=== PATIENT | female | born 1985 | race Caucasian/White ===

== ENCOUNTER 2021-05-09 20:26 | Emergency (ER) | payer OTHER ==
[~2021-05-09] VITALS: Ht 162.6 cm; Wt 85.7 kg
[2021-05-09 21:25] VITALS: BP 139/99
--- NOTE | 2021-05-09 21:28 | NUR ---
TO LOBBY A/W BED AMBULATORY
--- NOTE | 2021-05-09 22:46 | NUR ---
Dr. Hopkins examining patient.
[2021-05-09] MEDS ORDERED: IBUPROFEN 600 MG TAB PO ONE (22:50)
--- NOTE | 2021-05-09 23:31 | NUR ---
PT TAKEN TO CT VIA W.C.
--- NOTE | 2021-05-09 23:46 | NUR ---
PT RETURNED FROM CT VIA WC.
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
[2021-05-10] MEDS ORDERED: NAPR-54 PO (01:24)
== END 2021-05-10 01:29 | disposition home or self-care (01) ==
LOC: MED 20:26
DX: S01.21XA Laceration without foreign body of nose, initial encounter (principal); Z79.1 Long term (current) use of non-steroidal anti-inflammatories (NSAID); Z88.6 Allergy status to analgesic agent; Z88.5 Allergy status to narcotic agent; W50.0XXA Accidental hit or strike by another person, initial encounter; Y93.89 Activity, other specified; Y92.89 Other specified places as the place of occurrence of the external cause; Y99.8 Other external cause status
CPT/HCPCS: 70160; 70450; 70486; 99285